=== PATIENT | female | born 1945 | race Caucasian/White ===

== ENCOUNTER 2023-02-20 00:07 | Inpatient (IN) | payer MEDICARE ==
[2023-02-20] MEDS ORDERED: SODIUM CHLORIDE 0.9% 1,000 ML IV STA (00:10)
--- NOTE | 2023-02-20 00:11 | ED ---
Neuro HPI - General Stated Complaint: Neuro Symptoms Time Seen by Provider: 02/20/23 00:10 Source: RN notes reviewed, old records reviewed Mode of arrival: EMS Limitations: no limitations - History of Present Illness Is the patient presenting with stroke symptoms?: No -: days(s) Initial Comments: This is a 69-year-old female DF for evaluation today. Patient presents the emergency department today for evaluation regards to severe weakness. Patient is somnolent and sleeping throughout exam. Patient is not having complaints but is awake and alert and arousable, patient sent to ER if she was found to have maybe some slurred speech. Last seen normal by living staff around noon today and family thought she was acting not really appropriate oh 9 PM Location: speech, dysarthria History of same: No Place: home Severity: moderate Improves With: none Worsens With: none Associated Symptoms: confusion, weakness Treatments Prior to Arrival: none - Related Data Home Medications: Home Medications Medication Instructions Recorded Confirmed Levothyroxine Sodium [Synthroid] 75 mcg PO DAILY 02/20/23 02/20/23 Previous Rx's Medication Instructions Recorded Aspirin 81 mg PO DAILY #30 tab 02/22/23 Atorvastatin [Lipitor] 80 mg PO HS #30 tab 02/22/23 Allergies/Adverse Reactions: Allergies Allergy/AdvReac Type Severity Reaction Status Date / Time Unable to Assess Allergy Verified 02/20/23 00:26 Review of Systems ROS Statement: Those systems with pertinent positive or pertinent negative responses have been documented in the HPI. ROS Other: All systems not noted in ROS Statement are negative. General Exam General appearance: alert, in no apparent distress Head exam: Present: atraumatic, normocephalic, normal inspection Eye exam: Present: normal appearance, PERRL, EOMI. Absent: scleral icterus, conjunctival injection, periorbital swelling ENT exam: Present: normal exam, mucous membranes moist Neck exam: Present: normal inspection. Absent: tenderness, meningismus, lymphadenopathy Respiratory exam: Present: normal lung sounds bilaterally. Absent: respiratory distress, wheezes, rales, rhonchi, stridor Cardiovascular Exam: Present: regular rate, normal rhythm, normal heart sounds. Absent: systolic murmur, diastolic murmur, rubs, gallop, clicks GI/Abdominal exam: Present: soft, normal bowel sounds. Absent: distended, tenderness, guarding, rebound, rigid Extremities exam: Present: normal inspection, full ROM, normal capillary refill. Absent: tenderness, pedal edema, joint swelling, calf tenderness Back exam: Present: normal inspection Neurological exam: Present: alert, oriented X3, CN II-XII intact Psychiatric exam: Present: normal affect, normal mood Skin exam: Present: warm, dry, intact, normal color. Absent: rash Stroke MDM - Lab Data Result diagrams: 02/22/23 08:22 02/22/23 11:07 Lab Results 02/20/23 02/20/23 02/20/23 Range/Units 00:25 00:27 00:27 WBC 7.8 (3.8-10.6) k/uL RBC 4.23 (3.80-5.40) m/uL Hgb 14.2 (11.4-16.0) gm/dL Hct 42.5 (34.0-46.0) % MCV 100.5 H (80.0-100.0) fL MCH 33.5 (25.0-35.0) pg MCHC 33.3 (31.0-37.0) g/dL RDW 13.4 (11.5-15.5) % Plt Count 179 (150-450) k/uL MPV 7.8 Neutrophils % 70 % Lymphocytes % 26 % Monocytes % 3 % Eosinophils % 0 % Basophils % 0 % Neutrophils # 5.5 (1.3-7.7) k/uL Lymphocytes # 2.0 (1.0-4.8) k/uL Monocytes # 0.2 (0-1.0) k/uL Eosinophils # 0.0 (0-0.7) k/uL Basophils # 0.0 (0-0.2) k/uL Macrocytosis PT 10.2 (10.0-12.5) sec INR 0.9 (<1.2) APTT 21.8 L (22.0-30.0) sec Sodium (137-145) mmol/L Potassium (3.5-5.1) mmol/L Chloride (98-107) mmol/L Carbon Dioxide (22-30) mmol/L Anion Gap mmol/L BUN (7-17) mg/dL Creatinine (0.52-1.04) mg/dL Est GFR (CKD-EPI)AfAm (>60 ml/min/1.73 sqM) Est GFR (CKD-EPI)NonAf (>60 ml/min/1.73 sqM) Glucose (74-99) mg/dL POC Glucose (mg/dL) 136 H (70-110) mg/dL POC Glu [employer] Dealer Jitendra Deal Calcium (8.4-10.2) mg/dL Phosphorus (2.5-4.5) mg/dL Magnesium (1.6-2.3) mg/dL Total Bilirubin (0.2-1.3) mg/dL AST (14-36) U/L ALT (4-34) U/L Alkaline Phosphatase (38-126) U/L Ammonia (<30) umol/L Creatine Kinase (30-135) U/L Troponin I (0.000-0.034) ng/mL Total Protein (6.3-8.2) g/dL Albumin (3.5-5.0) g/dL Lipase (23-300) U/L Vitamin B12 (200.0-944.0) pg/mL Folate (4.40-31.00) ng/mL TSH (0.465-4.680) mIU/L Urine Color Urine Appearance (Clear) Urine pH (5.0-8.0) Ur Specific [place] (1.001-1.035) Urine Protein (Negative) Urine Glucose (UA) (Negative) Urine Ketones (Negative) Urine Blood (Negative) Urine Nitrite (Negative) Urine Bilirubin (Negative) Urine Urobilinogen (<2.0) mg/dL Ur Leukocyte Esterase (Negative) Urine RBC (0-5) /hpf Urine WBC (0-5) /hpf Ur Squamous Epith Cells (0-4) /hpf Urine Bacteria (None) /hpf Hyaline Casts (0-2) /lpf Urine Mucus (None) /hpf Serum Alcohol mg/dL 02/20/23 02/20/23 02/20/23 Range/Units 00:27 00:27 00:27 WBC (3.8-10.6) k/uL RBC (3.80-5.40) m/uL Hgb (11.4-16.0) gm/dL Hct (34.0-46.0) % MCV (80.0-100.0) fL MCH (25.0-35.0) pg MCHC (31.0-37.0) g/dL RDW (11.5-15.5) % Plt Count (150-450) k/uL MPV Neutrophils % % Lymphocytes % % Monocytes % % Eosinophils % % Basophils % % Neutrophils # (1.3-7.7) k/uL Lymphocytes # (1.0-4.8) k/uL Monocytes # (0-1.0) k/uL Eosinophils # (0-0.7) k/uL Basophils # (0-0.2) k/uL Macrocytosis PT (10.0-12.5) sec INR (<1.2) APTT (22.0-30.0) sec Sodium 139 (137-145) mmol/L Potassium 3.9 (3.5-5.1) mmol/L Chloride 105 (98-107) mmol/L Carbon Dioxide 24 (22-30) mmol/L Anion Gap 10 mmol/L BUN 16 (7-17) mg/dL Creatinine 0.68 (0.52-1.04) mg/dL Est GFR (CKD-EPI)AfAm >90 (>60 ml/min/1.73 sqM) Est GFR (CKD-EPI)NonAf 84 (>60 ml/min/1.73 sqM) Glucose 140 H (74-99) mg/dL POC Glucose (mg/dL) (70-110) mg/dL POC Glu [employer] Dealer ID Calcium 9.8 (8.4-10.2) mg/dL Phosphorus (2.5-4.5) mg/dL Magnesium (1.6-2.3) mg/dL Total Bilirubin 0.8 (0.2-1.3) mg/dL AST 26 (14-36) U/L ALT 17 (4-34) U/L Alkaline Phosphatase 80 (38-126) U/L Ammonia <9 (<30) umol/L Creatine Kinase 128 (30-135) U/L Troponin I (0.000-0.034) ng/mL Total Protein 7.3 (6.3-8.2) g/dL Albumin 4.4 (3.5-5.0) g/dL Lipase (23-300) U/L Vitamin B12 (200.0-944.0) pg/mL Folate (4.40-31.00) ng/mL TSH (0.465-4.680) mIU/L Urine Color Light Yellow Urine Appearance Clear (Clear) Urine pH 6.0 (5.0-8.0) Ur Specific [place] 1.034 (1.001-1.035) Urine Protein Negative (Negative) Urine Glucose (UA) Negative (Negative) Urine Ketones Negative (Negative) Urine Blood Negative (Negative) Urine Nitrite Negative (Negative) Urine Bilirubin Negative (Negative) Urine Urobilinogen <2.0 (<2.0) mg/dL Ur Leukocyte Esterase Large H (Negative) Urine RBC 3 (0-5) /hpf Urine WBC 17 H (0-5) /hpf Ur Squamous Epith Cells 2 (0-4) /hpf Urine Bacteria Rare H (None) /hpf Hyaline Casts 3 H (0-2) /lpf Urine Mucus Rare H (None) /hpf Serum Alcohol <10 mg/dL 02/20/23 02/20/23 02/20/23 Range/Units 00:30 11:51 11:51 WBC (3.8-10.6) k/uL RBC (3.80-5.40) m/uL Hgb (11.4-16.0) gm/dL Hct (34.0-46.0) % MCV (80.0-100.0) fL MCH (25.0-35.0) pg MCHC (31.0-37.0) g/dL RDW (11.5-15.5) % Plt Count (150-450) k/uL MPV Neutrophils % % Lymphocytes % % Monocytes % % Eosinophils % % Basophils % % Neutrophils # (1.3-7.7) k/uL Lymphocytes # (1.0-4.8) k/uL Monocytes # (0-1.0) k/uL Eosinophils # (0-0.7) k/uL Basophils # (0-0.2) k/uL Macrocytosis PT (10.0-12.5) sec INR (<1.2) APTT (22.0-30.0) sec Sodium (137-145) mmol/L Potassium (3.5-5.1) mmol/L Chloride (98-107) mmol/L Carbon Dioxide (22-30) mmol/L Anion Gap mmol/L BUN (7-17) mg/dL Creatinine (0.52-1.04) mg/dL Est GFR (CKD-EPI)AfAm (>60 ml/min/1.73 sqM) Est GFR (CKD-EPI)NonAf (>60 ml/min/1.73 sqM) Glucose (74-99) mg/dL POC Glucose (mg/dL) (70-110) mg/dL POC Glu [employer] Dealer ID Calcium (8.4-10.2) mg/dL Phosphorus (2.5-4.5) mg/dL Magnesium (1.6-2.3) mg/dL Total Bilirubin (0.2-1.3) mg/dL AST (14-36) U/L ALT (4-34) U/L Alkaline Phosphatase (38-126) U/L Ammonia 14 (<30) umol/L Creatine Kinase (30-135) U/L Troponin I <0.012 (0.000-0.034) ng/mL Total Protein (6.3-8.2) g/dL Albumin (3.5-5.0) g/dL Lipase (23-300) U/L Vitamin B12 409.0 (200.0-944.0) pg/mL Folate (4.40-31.00) ng/mL TSH 1.160 (0.465-4.680) mIU/L Urine Color Urine Appearance (Clear) Urine pH (5.0-8.0) Ur Specific [place] (1.001-1.035) Urine Protein (Negative) Urine Glucose (UA) (Negative) Urine Ketones (Negative) Urine Blood (Negative) Urine Nitrite (Negative) Urine Bilirubin (Negative) Urine Urobilinogen (<2.0) mg/dL Ur Leukocyte Esterase (Negative) Urine RBC (0-5) /hpf Urine WBC (0-5) /hpf Ur Squamous Epith Cells (0-4) /hpf Urine Bacteria (None) /hpf Hyaline Casts (0-2) /lpf Urine Mucus (None) /hpf Serum Alcohol mg/dL 02/20/23 02/21/23 02/21/23 Range/Units 11:51 07:10 07:10 WBC 7.9 (3.8-10.6) k/uL RBC 3.70 L (3.80-5.40) m/uL Hgb 12.3 (11.4-16.0) gm/dL Hct 37.3 (34.0-46.0) % MCV 100.8 H (80.0-100.0) fL MCH 33.3 (25.0-35.0) pg MCHC 33.1 (31.0-37.0) g/dL RDW 13.4 (11.5-15.5) % Plt Count 188 (150-450) k/uL MPV 7.6 Neutrophils % 72 % Lymphocytes % 22 % Monocytes % 4 % Eosinophils % 1 % Basophils % 0 % Neutrophils # 5.8 (1.3-7.7) k/uL Lymphocytes # 1.7 (1.0-4.8) k/uL Monocytes # 0.3 (0-1.0) k/uL Eosinophils # 0.1 (0-0.7) k/uL Basophils # 0.0 (0-0.2) k/uL Macrocytosis Slight PT (10.0-12.5) sec INR (<1.2) APTT (22.0-30.0) sec Sodium 142 (137-145) mmol/L Potassium 3.4 L (3.5-5.1) mmol/L Chloride 111 H (98-107) mmol/L Carbon Dioxide 26 (22-30) mmol/L Anion Gap 5 mmol/L BUN 8 (7-17) mg/dL Creatinine 0.54 (0.52-1.04) mg/dL Est GFR (CKD-EPI)AfAm >90 (>60 ml/min/1.73 sqM) Est GFR (CKD-EPI)NonAf >90 (>60 ml/min/1.73 sqM) Glucose 103 H (74-99) mg/dL POC Glucose (mg/dL) (70-110) mg/dL POC Glu [employer] Dealer ID Calcium 8.7 (8.4-10.2) mg/dL Phosphorus 3.3 (2.5-4.5) mg/dL Magnesium 1.8 (1.6-2.3) mg/dL Total Bilirubin 0.8 (0.2-1.3) mg/dL AST 30 (14-36) U/L ALT 15 (4-34) U/L Alkaline Phosphatase 73 (38-126) U/L Ammonia (<30) umol/L Creatine Kinase (30-135) U/L Troponin I (0.000-0.034) ng/mL Total Protein 5.2 L (6.3-8.2) g/dL Albumin 2.8 L (3.5-5.0) g/dL Lipase 44 (23-300) U/L Vitamin B12 (200.0-944.0) pg/mL Folate 9.20 (4.40-31.00) ng/mL TSH (0.465-4.680) mIU/L Urine Color Urine Appearance (Clear) Urine pH (5.0-8.0) Ur Specific [place] (1.001-1.035) Urine Protein (Negative) Urine Glucose (UA) (Negative) Urine Ketones (Negative) Urine Blood (Negative) Urine Nitrite (Negative) Urine Bilirubin (Negative) Urine Urobilinogen (<2.0) mg/dL Ur Leukocyte Esterase (Negative) Urine RBC (0-5) /hpf Urine WBC (0-5) /hpf Ur Squamous Epith Cells (0-4) /hpf Urine Bacteria (None) /hpf Hyaline Casts (0-2) /lpf Urine Mucus (None) /hpf Serum Alcohol mg/dL - NIH Stroke Scale 1a. Level of Consciousness: (0) alert 1b. LOC Questions: (0) answers correctly 1c. LOC Commands: (0) performs tasks correctly 2. Best Gaze: (0) normal 3. Visual: (0) no visual loss 4. Facial Palsy: (0) normal symmetrical movement 5a. Motor Arm Left: (0) no drift 5b. Motor Arm Right: (0) no drift 6a. Motor Leg Left: (0) no drift 6b. Motor Leg Right: (0) no drift 7. Limb Ataxia: (0) absent 8. Sensory: (0) normal 9. Best Language: (0) no aphasia 10. Dysarthria: (0) normal 11. Extinction/Inattention: (0) no abnormality - Thrombolytic Inclusion/Exclusion Thrombolytic Exclusion Criteria: Symptom Onset > 4.5 Hours Thrombolytic Inclusion Criteria: NIH Stroke Scale Deficit - Medical Decision Making 69 female to the ER for evaluation of decreased level of responsiveness being somnolent family was concerned for slurred speech with no focal neurological findings here in the ER CT scan is negative and patient be admitted for observation neurology evaluation - Radiology Data Radiology results: report reviewed (CT brain CT had neck negative for acute disease), image reviewed - EKG Data -: EKG Interpreted by Me (EKG is sinus 89 NJ 139 QRS 78 QTc 409) Course Vital Signs 02/20/23 02/20/23 02/20/23 00:15 00:18 00:30 Temperature 97.9 F Pulse Rate 89 97 90 Respiratory 18 18 18 Rate Blood Pressure 88/66 99/87 99/72 O2 Sat by Pulse 98 99 100 Oximetry 02/20/23 02/20/23 02/20/23 00:45 01:00 01:15 Temperature Pulse Rate 88 88 75 Respiratory 18 18 18 Rate Blood Pressure 143/71 138/70 116/68 O2 Sat by Pulse 100 100 100 Oximetry 02/20/23 02/20/23 02/20/23 01:30 01:45 02:00 Temperature Pulse Rate 78 84 75 Respiratory 18 18 18 Rate Blood Pressure 122/74 118/72 123/68 O2 Sat by Pulse 100 100 100 Oximetry 02/20/23 02/20/23 02/20/23 02:30 03:00 06:28 Temperature Pulse Rate 80 85 94 Respiratory 18 18 16 Rate Blood Pressure 138/86 126/86 140/77 O2 Sat by Pulse 100 100 95 Oximetry 02/20/23 02/20/23 02/20/23 07:02 11:55 17:15 Temperature 98.2 F Pulse Rate 80 79 68 Respiratory 18 18 18 Rate Blood Pressure 133/75 122/78 155/98 O2 Sat by Pulse 98 98 98 Oximetry 02/20/23 20:30 Temperature Pulse Rate 92 Respiratory 18 Rate Blood Pressure 162/89 O2 Sat by Pulse 100 Oximetry - Reevaluation(s) Reevaluation #1: 02/20/23 02:41 medical record is reviewed 02/20/23 02:42 Code stroke based on patient presentation family thinking that she did have slurred speech prior to arrival Reevaluation #2: 02/20/23 02:42 Patient has no improvement in symptoms here in the ER, no response to Narcan Reevaluation #3: 02/20/23 02:42 Family at bedside informed results and questions answered Patient states that patient when she does do significant amount of work which she did today does become significantly somnolent Reevaluation #4: 02/20/23 02:42 Was pt. sent in by a medical professional or institution (Dr., PA, CADDY/CADDIE SUPERVISOR, urgent care, hospital, or [place] [facility] facility...) When possible be specific @ -no Did you speak to anyone other than the patient for history (EMS, parent, family, police, friend...)? What history was obtained from this source @ -no Did you review nursing and triage notes (agree or disagree)? Why? @ -agree Are old charts reviewed (outside hosp., previous admission, EMS record, old EKG, old radiological studies, urgent care reports/EKG's, [place] [facility] records)? Report findings @ -yes Differential Diagnosis (chest pain, altered mental status, abdominal pain women, abdominal pain men, vaginal bleeding, weakness, fever, dyspnea, syncope, headache, dizziness, GI bleed, back pain, seizure, CVA, palpatations, mental health, musculoskeletal)? @ -prior EKG interpreted by me (3pts min.). @ -yes X-rays interpreted by me (1pt min.). @ -yes for acute disease CT interpreted by me (1pt min.). @ -yes negative for acute disease U/S interpreted by me (1pt. min.). @ -no What testing was considered but not performed or refused? (CT, X-rays, U/S, labs)? Why? @ -none What meds were considered but not given or refused? Why? @ -none Did you discuss the management of the patient with other professionals (professionals i.e. RAGHAVENDRA Petty, CADDY/CADDIE SUPERVISOR, lab, RT, psych nurse, social media marketing specialist, acute care certified nursing assistant, teacher, special forces officer, dependency case manager)? Give summary @ -no Was smoking cessation discussed for >3mins.? @ -no Was critical care preformed (if so, how long)? @ -yes31 Were there social determinants of health that impacted care today? How? (Homelessness, low income, unemployed, alcoholism, drug addiction, trans portation, low edu. Level, literacy, decrease access to med. care, group home, rehab)? @ -none Was there de-escalation of care discussed even if they declined (Discuss DNR or withdrawal of care, Hospice)? DNR status @ -no What co-morbidities impacted this encounter? (DM, HTN, Smoking, COPD, CAD, Cancer, CVA, ARF, Chemo, Hep., AIDS, mental health diagnosis, sleep apnea, morbid obesity)? @ -none Was patient admitted / discharged? Hospital course, mention meds given and route, prescriptions, significant lab abnormalities, going to OR and other pertinent info. @ - 77 female to the ER for evaluation of decreased level of responsiveness being somnolent family was concerned for slurred speech with no focal neurological findings here in the ER CT scan is negative and patient be admitted for observation neurology evaluation Admitted Undiagnosed new problem with uncertain prognosis? @ -no Drug Therapy requiring intensive monitoring for toxicity (Heparin, Nitro, Insulin, Cardizem)? @ -no Were any procedures done? @ -no Diagnosis/symptom? @ -CVA versus TIA Acute, or Chronic, or Acute on Chronic? @ -Acute Uncomplicated (without systemic symptoms) or Complicated (systemic symptoms)? @ -Complicated Side effects of treatment? @ -no Exacerbation, Progression, or Severe Exacerbation? @ -exacerbation Poses a threat to life or bodily function? How? (Chest pain, USA, IA, pneumonia, PE, COPD, DKA, ARF, appy, cholecystitis, CVA, Diverticulitis, Homicidal, Suicidal, threat to staff... and all critical care pts) @ -yes with acute neurological symptoms Reevaluation #5: 02/20/23 02:42 Differential CVA Ischemic stroke, hemorrhagic stroke, brain tumor, atypical migraine, Wernicke's encephalopathy, seizure, multiple sclerosis, meningitis, encephalitis, hypoglycemia, Guillain-Singh, electrolytes disturbance, myasthenia gravis.... This is not meant to be an all-inclusive list - Consultations Consultation #1: spoke sound who agrees to admit the patient is Critical Care Time Critical Care Time: Yes Total Critical Care Time: 31 Disposition Clinical Impression: Transient cerebral ischemia, Altered mental status, Weakness Disposition: ADMITTED IP TO THIS HOSP Condition: Fair Is patient prescribed a controlled substance at d/c from ED?: No Time of Disposition: 02:40
[2023-02-20 00:27] LABS: Glucose,Whole Blood 136 mg/dL (70-110)
[2023-02-20 00:36] LABS: Basophils % (A) 0 %; Eosinophils % (A) 0 %; HCT 42.5 % (34.0-46.0); HGB 14.2 gm/dL (11.4-16.0); Lymphocytes % (A) 26 %; MCH 33.5 pg (25.0-35.0); MCHC 33.3 g/dL (31.0-37.0); MCV 100.5 fL (80.0-100.0); Mean Platelet Volume 7.8; Monocytes # (A) 0.2 k/uL (0-1.0); Monocytes % (A) 3 %; Neutrophils # (A) 5.5 k/uL (1.3-7.7); Neutrophils % (A) 70 %; Platelet Count 179 k/uL (150-450); RBC 4.23 m/uL (3.80-5.40); RDW 13.4 % (11.5-15.5); WBC 7.8 k/uL (3.8-10.6)
[2023-02-20 00:52] LABS: ALT 17 U/L (4-34); African American GFR (CKD) >90 (>60 ml/min/1.73 sqM); Albumin 4.4 g/dL (3.5-5.0); Alcohol <10 mg/dL; Anion Gap 10 mmol/L; Blood Urea Nitrogen 16 mg/dL (7-17); Calcium 9.8 mg/dL (8.4-10.2); Carbon Dioxide 24 mmol/L (22-30); Chloride 105 mmol/L (98-107); Creatine Kinase 128 U/L (30-135); Glucose 140 mg/dL (74-99); INR 0.9 (<1.2); Non-African American GFR(CKD) 84 (>60 ml/min/1.73 sqM); Prothrombin Time 10.2 sec (10.0-12.5); Sodium 139 mmol/L (137-145); Total Bilirubin 0.8 mg/dL (0.2-1.3); Total Protein 7.3 g/dL (6.3-8.2)
[2023-02-20 00:55] LABS: Partial Thromboplastin Time 21.8 sec (22.0-30.0)
--- NOTE | 2023-02-20 01:00 | CT ---
EXAM: CT Head Without Intravenous Contrast CLINICAL HISTORY: ITS.REASON CT Reason: Neuro deficit, acute, stroke suspected TECHNIQUE: Axial computed tomography images of the head/brain without intravenous contrast. CTDI is 48.8 mGy and DLP is 1188.9 mGy-cm. This CT exam was performed using one or more of the following dose reduction techniques: automated exposure control, adjustment of the mA and/or kV according to patient size, and/or use of iterative reconstruction technique. COMPARISON: No relevant prior studies available. FINDINGS: Brain: Unremarkable. No hemorrhage. No significant white matter disease. No edema. Ventricles: No acute findings. No ventriculomegaly. Bones/joints: Unremarkable. No acute fracture. Soft tissues: Trichilemmal cysts in the scalp. Sinuses: Unremarkable as visualized. No acute sinusitis. Mastoid air cells: Unremarkable as visualized. No mastoid effusion. IMPRESSION: No acute findings in the head/brain.
--- NOTE | 2023-02-20 01:02 | XR ---
EXAM: XR Chest, 1 View CLINICAL HISTORY: ITS.REASON XR Reason: altered mental status TECHNIQUE: Frontal view of the chest. COMPARISON: No relevant prior studies available. FINDINGS: Lungs: No consolidation. Pleural space: No acute findings. No pneumothorax. Heart: No cardiomegaly. Bones/joints: Postsurgical changes in the lower cervical spine and T1. IMPRESSION: No acute findings in the chest.
--- NOTE | 2023-02-20 01:09 | CT ---
EXAM: CT Angiography Head With Intravenous Contrast CLINICAL HISTORY: ITS.REASON CT Reason: Neuro deficit, acute, stroke suspected TECHNIQUE: Axial computed tomographic angiography images of the head with intravenous contrast. CTDI is 13.2 mGy and DLP is 148.75 mGy-cm. This CT exam was performed using one or more of the following dose reduction techniques: automated exposure control, adjustment of the mA and/or kV according to patient size, and/or use of iterative reconstruction technique. MIP reconstructed images were created and reviewed. COMPARISON: No relevant prior studies available. FINDINGS: Artifacts: Motion artifact limits study. Right internal carotid artery: No acute findings. Intracranial segment is patent with no significant stenosis. No aneurysm. Right anterior cerebral artery: No occlusion or significant stenosis. No aneurysm. Right middle cerebral artery: No occlusion or significant stenosis. No aneurysm. Right posterior cerebral artery: No occlusion or significant stenosis. No aneurysm. Right vertebral artery: Unremarkable as visualized. Left internal carotid artery: No acute findings. Intracranial segment is patent with no significant stenosis. No aneurysm. Left anterior cerebral artery: No occlusion or significant stenosis. No aneurysm. Left middle cerebral artery: No occlusion or significant stenosis. No aneurysm. Left posterior cerebral artery: No occlusion or significant stenosis. No aneurysm. Left vertebral artery: Unremarkable as visualized. Basilar artery: No occlusion or significant stenosis. No aneurysm. IMPRESSION: No large vessel occlusion or aneurysm. EXAM: CT Angiography Neck With Intravenous Contrast CLINICAL HISTORY: ITS.REASON CT Reason: Neuro deficit, acute, stroke suspected TECHNIQUE: Routine carotid CT angiography protocol was performed with intravenous contrast. NASCET criteria using the distal ICAs for comparison were used for evaluation of stenoses. CTDI is 13.2 mGy and DLP is 148.75 mGy-cm. This CT exam was performed using one or more of the following dose reduction techniques: automated exposure control, adjustment of the mA and/or kV according to patient size, and/or use of iterative reconstruction technique. MIP reconstructed images were created and reviewed. COMPARISON: None. FINDINGS: Limitations: Exam limited by motion artifact. VASCULATURE: Right common carotid artery: No significant stenosis. No dissection or occlusion. Right internal carotid artery: Calcified plaque carotid bifurcations. Right external carotid artery: No occlusion. Right vertebral artery: No significant stenosis. No dissection or occlusion. Left common carotid artery: No significant stenosis. No dissection or occlusion. Left internal carotid artery: See above. Left external carotid artery: No occlusion. Left vertebral artery: No significant stenosis. No dissection or occlusion. NECK: Bones/joints: No acute findings. Soft tissues: Unremarkable. Lung apices: No acute disease. CAROTID STENOSIS REFERENCE USING NASCET CRITERIA: % ICA stenosis = (1 - narrowest ICA diameter/diameter of distal cervical ICA) x 100. Mild - <50% stenosis. Moderate - 50-69% stenosis. Severe - 70-94% stenosis. Near occlusion - 95-99% stenosis. Occluded - 100% stenosis. IMPRESSION: No acute findings in the arteries of the neck.
[2023-02-20] MEDS ORDERED: NALOXONE 0.4 MG/ML 1 ML VIAL IVP STA (01:26)
[2023-02-20 01:41] LABS: AST 26 U/L (14-36); Alkaline Phosphatase 80 U/L (38-126); Potassium 3.9 mmol/L (3.5-5.1)
[2023-02-20] MEDS ORDERED: MORPHINE SULFATE 4 MG/ML SYRINGE IV PRN (02:39)
[2023-02-20] MEDS ORDERED: ONDANSETRON 4 MG/2 ML VIAL IVP PRN (02:39)
[2023-02-20] MEDS ORDERED: NALOXONE 0.4 MG/ML 1 ML VIAL IV PRN (02:39)
--- NOTE | 2023-02-20 03:49 | P.HPIM ---
History of Present Illness H&P Date: 02/20/23 Patient is a 77-year-old female with a known PMH who was brought in the emergency room for slurred speech, confusion, and lethargy. This she was obtained from the ED provider in the documentation of the patient was confused at the time of interview. Patient was last seen at noon on 02/19/23 and when family checked on her at 2245, the patient was noted to have a facial droop, was somewhat lethargic, and had slurred speech. There are differing accounts of the patient's baseline and one family member mentioned to the ED staff that this is similar to the patient's baseline. Code stroke was activated upon arrival to the emergency room. CT angiogram head and neck was unremarkable. CT brain was also unremarkable. Patient was deemed to not be a candidate for TPA. No family members available at the bedside. Attempted to contact sibling via phone number listed in chart with no response. Chest x-ray was unremarkable. EKG revealed sinus rhythm with APCs at 89 bpm with no obvious ST/T-wave changes are as reviewed by me. Laboratory evaluation revealed MCV 100.5, troponin less than 0.012, and serum alcohol level less than 10 with glucose 140 ED documentation reviewed and case discussed with ED provider. Review of systems: Limited due to mental status Physical examination: Vital signs reviewed General: non toxic, no distress, appears at stated age, overweight Derm: no unusual rashes/lesions, warm Head: atraumatic, normocephalic, symmetric Eyes: EOMI, no lid lag, anicteric sclera, pupils equal round reactive to light ENT: Nose and ears atraumatic Neck: No cervical lymphadenopathy, trachea midline, supple Mouth: no lip lesion, mucus membranes moist Cardiovascular: S1S2 reg, no murmur, positive dorsalis pedis pulse bilateral, no edema Lungs: CTA bilateral, no rhonchi, no rales, no accessory muscle use Abdominal: soft, nontender to palpation, no guarding Ext: muscle strength 4 out of 5 in all 4 extremities grossly, no gross muscle atrophy, no contractures, Neuro: CN II-XI grossly intact, no gross focal neuro deficits, somewhat slurred speech, no facial droop noted Psych: Lethargic, oriented to person and place, not answering most questions appropriately Assessment: Slurred speech and altered mental status, rule out CVA Unknown past medical history Imaging: CT angiogram head and neck was unremarkable. CT brain was also unremarkable. Chest x-ray was unremarkable. EKG revealed sinus rhythm with APCs at 89 bpm with no obvious ST/T-wave changes are as reviewed by me. Data Review: Laboratory evaluation revealed MCV 100.5, troponin less than 0.012, and serum alcohol level less than 10 with glucose 140 Plan: Neuro checks Fall precautions Neurology consulted Continue with aspirin and statin Cardiac monitoring Echocardiogram DVT prophylaxis: Lovenox Subq The patient is admitted with an anticipated less than 2 midnight stay for evaluation of r/o CVA CODE STATUS: Full Code Discussed with: Patient Anticipated discharge place: Home Past Medical History Additional Past Medical History / Comment(s): UTO Additional Past Surgical History / Comment(s): UTO Medications and Allergies Allergies Allergy/AdvReac Type Severity Reaction Status Date / Time Unable to Assess Allergy Verified 02/20/23 00:26 Physical Exam Vitals: Vital Signs Temp Pulse Resp BP Pulse Ox 02/20/23 03:00 85 18 126/86 100 02/20/23 02:30 80 18 138/86 100 02/20/23 02:00 75 18 123/68 100 02/20/23 01:45 84 18 118/72 100 02/20/23 01:30 78 18 122/74 100 02/20/23 01:15 75 18 116/68 100 02/20/23 01:00 88 18 138/70 100 02/20/23 00:45 88 18 143/71 100 02/20/23 00:30 90 18 99/72 100 02/20/23 00:18 97.9 F 97 18 99/87 99 02/20/23 00:15 89 18 88/66 98 Intake and Output 02/19/23 02/19/23 02/20/23 14:59 22:59 06:59 Other: Weight 72.439 kg Results CBC & Chem 7: 02/20/23 00:27 02/20/23 00:27 Labs: Abnormal Lab Results - Last 24 Hours (Table) 02/20/23 02/20/23 02/20/23 Range/Units 00:25 00:27 00:27 MCV 100.5 H (80.0-100.0) fL APTT 21.8 L (22.0-30.0) sec Glucose (74-99) mg/dL POC Glucose (mg/dL) 136 H (70-110) mg/dL 02/20/23 Range/Units 00:27 MCV (80.0-100.0) fL APTT (22.0-30.0) sec Glucose 140 H (74-99) mg/dL POC Glucose (mg/dL) (70-110) mg/dL
[2023-02-20] MEDS: SODIUM CHLORIDE 0.9% 1,000 ML IV SCH ×4 (04:26→22:40)
[2023-02-20] MEDS: ATORVASTATIN 80 MG TAB PO ONE ×2 (04:39→05:06)
[2023-02-20] MEDS: ASPIRIN 325 MG TAB PO STA ×2 (04:39→05:06)
--- NOTE | 2023-02-20 09:36 | CA ---
Transthoracic Echo Report Name: Iris Lopez Age: 77 Gender: F : 1945 Exam Date: 02/20/2023 08:03 Exam Location: [place] [facility] Ht (in): 62 Wt (lb): 159 Ordering Physician: Susan Giron MD Attending/Referring Phys: Non Destructive Testing Scientist Tonia Jackson RDCS Procedure CPT: Indications: CVA? Cardiac Hx: Technical Quality: Good Contrast 1: Total Dose (mL): Contrast 2: Total Dose (mL): MEASUREMENTS (Male / Female) Normal Values 2D ECHO LV Diastolic Diameter PLAX 4.0 cm 4.2 - 5.9 / 3.9 - 5.3 cm LV Systolic Diameter PLAX 2.6 cm IVS Diastolic Thickness 1.1 cm 0.6 - 1.0 / 0.6 - 0.9 cm LVPW Diastolic Thickness 1.1 cm 0.6 - 1.0 / 0.6 - 0.9 cm LV Relative Wall Thickness 0.5 RV Internal Dim ED PLAX 2.6 cm LA Systolic Diameter LX 3.8 cm 3.0 - 4.0 / 2.7 - 3.8 cm LV Diastolic Volume MOD 4C 61.0 cm??? LV Systolic Volume MOD 4C 15.3 cm??? LV Ejection Fraction MOD 4C 74.9 % LV Cardiac Index MOD 4C 2537.2 cm???/min???m??? LV Diastolic Length 4C 7.5 cm LV Systolic Length 4C 5.9 cm LV Diastolic Volume MOD 2C 55.6 cm??? LV Systolic Volume MOD 2C 23.5 cm??? LV Ejection Fraction MOD 2C 57.7 % LV Cardiac Index MOD 2C 1783.1 cm???/min???m??? LV Diastolic Length 2C 7.5 cm LV Systolic Length 2C 5.8 cm LA Volume 49.9 cm??? 18 - 58 / 22 - 52 cm??? LA Volume Index 27.7 cm???/m??? 16 - 28 cm???/m??? M-MODE Aortic Root Diameter MM 3.2 cm AV Cusp Separation MM 1.6 cm DOPPLER AV Peak Velocity 131.8 cm/s AV Peak Gradient 7.0 mmHg MV Area PHT 3.0 cm??? Mitral E Point Velocity 87.7 cm/s Mitral A Point Velocity 156.0 cm/s Mitral E to A Ratio 0.6 MV Deceleration Time 253.9 ms MV E' Velocity 6.4 cm/s Mitral E to MV E' Ratio 13.7 FINDINGS Left Ventricle Left ventricular ejection fraction is estimated at 55-60 %. Left ventricular cavity size normal. Mildly increased septal wall thickness. Mildly increased posterior wall thickness. Right Ventricle Normal right ventricular size. Unable to estimate the right ventricular systolic pressure. Right Atrium Normal right atrial size. Left Atrium Normal left atrial size. Mitral Valve Mitral valve thickened. Mild mitral annular calcification. No mitral stenosis, regurgitation or prolapse. Aortic Valve Trileaflet aortic valve. Aortic valve sclerosis. Tricuspid Valve Structurally normal tricuspid valve. No tricuspid regurgitation. Pulmonic Valve Structurally normal pulmonic valve. No pulmonic regurgitation. Pericardium No pericardial effusion. Aorta Normal size aortic root and proximal ascending aorta. CONCLUSIONS Normal LV size and systolic function with mild concentric LVH. There is mitral annular calcification and aortic sclerosis without restriction. There is minimal mitral and tricuspid regurgitation. No pericardial effusion Previewed by: Dr. Radha Dyer MD (Electronically Signed) Final Date: 20 February 2023 09:35
[2023-02-20] MEDS: ASPIRIN 81 MG PO SCH ×2 (09:59)
[2023-02-20] MEDS: ENOXAPARIN 40 MG/0.4 ML SYRINGE SQ SCH (09:59)
--- NOTE | 2023-02-20 13:39 | P.CNNES ---
History of Present Illness Consult date: 02/20/23 Requesting physician: Dao Li Reason for Consult: ams History of Present Illness: This is a 77-year-old woman with altered mental status. History is obtained from medical record that. This seems the patient brought to the emergency department because of slurred speech, confusion and lethargy. Upon seeing the patient patient continued to be confused and unable to provide a history for me. Some other workup during his hospital visit consisted of: Patient is afebrile. Patient blood pressure was 88/66 resolved and most recent is 122/78. CBC with differential is MCV is 100.5 otherwise it's unremarkable Serum glucose is 104 otherwise rest of the chem strip panel is unremarkable Ammonia is less than 9, TSH is 1.160 AST and ALT is within normal limits Calcium is 9.8. Serum alcohol was less than 10. CT of the head is reported as no acute finding in the head. I personally reviewed the CT head and I agree with the report. CT angiography of the head is reported as no large vessel occlusion or aneurysm CT angiography of the neck was reported as no acute finding in the arteries of the neck. 2-D echo was reported as normal left ventricular size and systolic function with mild concentric left ventricular hypertrophy. There is mild annular calcification and aortic sclerosis without restriction. There is minimal mitral and tricuspid regurgitation. No pericardial effusion. Review of Systems Limited. Past Medical History Additional Past Medical History / Comment(s): UTO Additional Past Surgical History / Comment(s): UTO Medications and Allergies Home Medications Medication Instructions Recorded Confirmed Type Levothyroxine Sodium [Synthroid] 75 mcg PO DAILY 02/20/23 02/20/23 History Simvastatin [Zocor] 20 mg PO HS 02/20/23 02/20/23 History Allergies Allergy/AdvReac Type Severity Reaction Status Date / Time Unable to Assess Allergy Verified 02/20/23 00:26 Physical Examination - Vital Signs Vital Signs: Vital Signs Temp Pulse Resp BP Pulse Ox 02/20/23 11:55 98.2 F 79 18 122/78 98 02/20/23 07:02 80 18 133/75 98 02/20/23 06:28 94 16 140/77 95 02/20/23 03:00 85 18 126/86 100 02/20/23 02:30 80 18 138/86 100 02/20/23 02:00 75 18 123/68 100 02/20/23 01:45 84 18 118/72 100 02/20/23 01:30 78 18 122/74 100 02/20/23 01:15 75 18 116/68 100 02/20/23 01:00 88 18 138/70 100 02/20/23 00:45 88 18 143/71 100 02/20/23 00:30 90 18 99/72 100 02/20/23 00:18 97.9 F 97 18 99/87 99 02/20/23 00:15 89 18 88/66 98 Intake and Output 02/19/23 02/20/23 02/20/23 22:59 06:59 14:59 Other: Weight 72.439 kg General: Lying in bed and does not appear in acute distress. HENT: Supple neck. NEuro: Very limited. She is moderate to severely encephalopathic. She is oriented to self. She is following few simple commands (thumbs up, wiggling toes). Language is limited. Pupils are round, equal and reactive to light. No facial weakness. Motor: Very limited in assessment. She would briefly lift bilateral uppers above gravity. While lowers would wiggle toes. Plantars: Mute. Results - Laboratory Findings CBC and BMP: 02/20/23 00:27 02/20/23 00:27 Abnormal Lab Findings: Abnormal Labs 02/20/23 02/20/23 02/20/23 00:25 00:27 00:27 MCV 100.5 H APTT 21.8 L Glucose POC Glucose (mg/dL) 136 H 02/20/23 00:27 MCV APTT Glucose 140 H POC Glucose (mg/dL) Assessment and Plan Assessment: This is a 77-year-old woman who presents because of confusion, lethargy was slurred speech. She had CT of the head as well as CT angiography of the head and neck which were unremarkable. Her initial blood pressure on presentation was in the 80s systolic which improved. Encephalopathy of unknown exact etiology. Patient had hypotensive episode. Rule out underlying stroke Plan: I ordered MRI of the brain, routine EEG. I also ordered TSH vitamin B12 and ammonia level Patient is on aspirin 81 mg daily as well as Lipitor 80 mg daily at bedtime. Continue neurochecks Cardiac monitoring PT OT and also by mouth consulted His avoid any further hypotensive episodes. We'll defer the rest of the medical measure the primary team For DVT prophylaxis patient on Lovenox Thank you for the consultation Time with Patient: Greater than 30
[2023-02-20 14:47] LABS: Appearance,Urine Clear (Clear); Bacteria,Urine Rare /hpf; Bilirubin,Urine Negative (Negative); Blood,Urine Negative (Negative); Color,Urine Light Yellow; Glucose,Urine (UA) Negative (Negative); Hyaline Casts,Urine 3 /lpf (0-2); Ketones,Urine Negative (Negative); Leukocyte Esterase,Urine Large (Negative); Mucus,Urine Rare /hpf; Nitrite,Urine Negative (Negative); Protein,Urine Negative (Negative); RBC,Urine 3 /hpf (0-5); Specific Gravity,Urine 1.034 (1.001-1.035); Squamous Epithelial Cell,Urine 2 /hpf (0-4); Urobilinogen,Urine <2.0 mg/dL (<2.0); WBC,Urine 17 /hpf (0-5)
[2023-02-20] MEDS ORDERED: HALOPERIDOL LACTATE 5 MG/ML 1 ML VIAL IVP PRN (18:14)
[2023-02-20] MEDS ORDERED: HALOPERIDOL LACTATE 5 MG/ML 1 ML VIAL IVP STA (21:40)
[2023-02-20] MEDS: ATORVASTATIN 80 MG TAB PO SCH (21:44)
--- NOTE | 2023-02-20 23:44 | EEG ---
ELECTROENCEPHALOGRAM REPORT CLINICAL HISTORY: This is a 77-year-old woman with altered mental status. The video EEG is obtained to rule out seizure and epileptiform discharges. RELEVANT MEDICATIONS: The patient is not on any antiepileptic drug per the medical record. EEG TYPE: A routine 21-channel EEG with video using the 10/20 electrode placement system. DESCRIPTION: Wakefulness is only obtained. The background is very limited throughout the study because of significant myogenic artifact. From the limited background it appears the background is 9.5 to 10 hertz activity. There is no physiological stage 2 sleep architecture. There is no focal slowing from the limited study. There is significant diffuse myogenic artifact throughout the study. Interictal and ictal is none from the limited study. ACTIVATION PROCEDURE: Photic stimulation, hyperventilation is not performed. CLINICAL INTERPRETATION: The study is limited because of significant myogenic artifact, but from limitation the background is normal and there are no seizure or discharges. Clinical correlation is recommended. VANESSAODL / IJN: [id number] / THANH
[2023-02-21 07:48] LABS: Basophils % (A) 0 %; Eosinophils # (A) 0.1 k/uL (0-0.7); Eosinophils % (A) 1 %; HCT 37.3 % (34.0-46.0); HGB 12.3 gm/dL (11.4-16.0); Lymphocytes # (A) 1.7 k/uL (1.0-4.8); Lymphocytes % (A) 22 %; MCH 33.3 pg (25.0-35.0); MCHC 33.1 g/dL (31.0-37.0); MCV 100.8 fL (80.0-100.0); Macrocytosis Slight; Mean Platelet Volume 7.6; Monocytes # (A) 0.3 k/uL (0-1.0); Monocytes % (A) 4 %; Neutrophils # (A) 5.8 k/uL (1.3-7.7); Neutrophils % (A) 72 %; Platelet Count 188 k/uL (150-450); RDW 13.4 % (11.5-15.5); WBC 7.9 k/uL (3.8-10.6)
[2023-02-21 08:08] LABS: ALT 15 U/L (4-34); AST 30 U/L (14-36); African American GFR (CKD) >90 (>60 ml/min/1.73 sqM); Albumin 2.8 g/dL (3.5-5.0); Alkaline Phosphatase 73 U/L (38-126); Anion Gap 5 mmol/L; Blood Urea Nitrogen 8 mg/dL (7-17); Calcium 8.7 mg/dL (8.4-10.2); Carbon Dioxide 26 mmol/L (22-30); Chloride 111 mmol/L (98-107); Glucose 103 mg/dL (74-99); Lipase 44 U/L (23-300); Magnesium 1.8 mg/dL (1.6-2.3); Non-African American GFR(CKD) >90 (>60 ml/min/1.73 sqM); Phosphorus 3.3 mg/dL (2.5-4.5); Potassium 3.4 mmol/L (3.5-5.1); Sodium 142 mmol/L (137-145); Total Bilirubin 0.8 mg/dL (0.2-1.3); Total Protein 5.2 g/dL (6.3-8.2)
[2023-02-21] MEDS: ENOXAPARIN 40 MG/0.4 ML SYRINGE SQ SCH (08:15)
[2023-02-21] MEDS: ASPIRIN 81 MG PO SCH (12:12)
--- NOTE | 2023-02-21 12:53 | MR ---
EXAMINATION TYPE: MR brain wo/w con DATE OF EXAM: 02/21/2023 COMPARISON: CT brain 1 day earlier HISTORY: AMS, encephalopathy unknown. TECHNIQUE: Multiplanar, multisequence images of the brain and brainstem is performed without and with IV contras t, utilizing 7 mL intravenous Gadavist . FINDINGS: Exam suboptimal as there is patient motion, fast sequence imaging had to be performed. Diff usion weighted images demonstrate no evidence of a recent infarct or other diffusion abnormality. Th ere is no extra-axial fluid collection. The ventricular system and cisternal spaces are normal in si ze and appearance. The brain volume is age appropriate. Single 3 mm T2 hyperintense focus right brai n posterior frontal deep white matter axial image 17. Midline structures demonstrate normal morphology. The craniocervical junction appears within normal limits. Post contrast images demonstrate no abnormal enhancement. The dural venous sinuses appear pa tent. The visualized sinuses are clear and the globes are intact. Nasal septum remains deviated to ri ght of midline. IMPRESSION: No MRI evidence for recent infarct. Suboptimal study with minimal nonspecific white matte r change. No obvious abnormal enhancement.
--- NOTE | 2023-02-21 12:55 | P.PN ---
Subjective Progress Note Date: 02/21/23 I am following-up with patient and continues is severely drowsy. Per nurse she was agitated overnight and was given Haldol. Currently she is severely drowsy Objective - Vital Signs Vital signs: Vital Signs Temp 97.9 F 02/21/23 08:10 Pulse 93 02/21/23 08:10 Resp 20 02/21/23 08:10 BP 165/97 02/21/23 08:10 Pulse Ox 95 02/21/23 10:19 FiO2 Intake & Output 02/20/23 02/21/23 02/21/23 18:59 06:59 18:59 Other: Voiding Method External Catheter # Voids 1 - Exam General: Is severely drowsy and does not appear in acute distress. Neuro: Severely drowsy. Not cooperating for examination or verbalizing. Some other workup during his hospital visit consisted of: Patient is afebrile. Patient blood pressure was 88/66 resolved and most recent is 122/78. CBC with differential is MCV is 100.5 otherwise it's unremarkable Serum glucose is 104 otherwise rest of the chem strip panel is unremarkable Ammonia is less than 9 TSH is 1.160 AST and ALT is within normal limits Calcium is 9.8. Vitamin B12 is 409 Serum folate 9.20 Serum alcohol was less than 10. Urine analysis seems suspicious for acute UTI with large leukocyte esteratse, urine wbc 17 and bacteria is rare. CT of the head is reported as no acute finding in the head. I personally reviewed the CT head and I agree with the report. CT angiography of the head is reported as no large vessel occlusion or aneurysm CT angiography of the neck was reported as no acute finding in the arteries of the neck. 2-D echo was reported as normal left ventricular size and systolic function with mild concentric left ventricular hypertrophy. There is mild annular calcification and aortic sclerosis without restriction. There is minimal mitral and tricuspid regurgitation. No pericardial effusion. Routine EEG on 02/20/2023: Study is limited because of the significant myogenic artifac. But from limitation the background is normal and there is no seizure or discharges. - Labs CBC & Chem 7: 02/21/23 07:10 02/21/23 07:10 Labs: Abnormal Lab Results - Last 24 Hours (Table) 02/20/23 02/21/23 02/21/23 Range/Units 00:27 07:10 07:10 RBC 3.70 L (3.80-5.40) m/uL MCV 100.8 H (80.0-100.0) fL Potassium 3.4 L (3.5-5.1) mmol/L Chloride 111 H (98-107) mmol/L Glucose 103 H (74-99) mg/dL Total Protein 5.2 L (6.3-8.2) g/dL Albumin 2.8 L (3.5-5.0) g/dL Ur Leukocyte Esterase Large H (Negative) Urine WBC 17 H (0-5) /hpf Urine Bacteria Rare H (None) /hpf Hyaline Casts 3 H (0-2) /lpf Urine Mucus Rare H (None) /hpf Assessment and Plan Assessment: This is a 77-year-old woman who presents because of confusion, lethargy was slurred speech. She had CT of the head as well as CT angiography of the head and neck which were unremarkable. Her initial blood pressure on presentation was in the 80s systolic which improved. Encephalopathy of unknown exact etiology. Patient had hypotensive episode with suspicious for acute UTI. Rule out underlying stroke. EEG is limited because of myogenic artifact but from limitation no seizure or discharges. Plan: MRI of the brain is pending Patient is on aspirin 81 mg daily as well as Lipitor 80 mg daily at bedtime. Continue neurochecks Cardiac monitoring PT OT consulted Please avoid any further hypotensive episodes. We'll defer the rest of the medical measure the primary team For DVT prophylaxis patient on Lovenox The plan is discussed with primary attending and her nurse. Time with Patient: Less than 30
[2023-02-21 13:10] VITALS: RESP 18
--- NOTE | 2023-02-21 14:36 | P.PN ---
Subjective Progress Note Date: 02/21/23 Pt rec'd several doses of haldol overnight, was very sleepy on my exam today. EEG was done and negative for seizure. Discussed with neurology today, plan is to complete MRI to r/o stroke. Gen: Sleepy, arousable HEENT: normocephalic, atraumatic, good hearing acuity, moist mucous membranes Resp: good air exchange, breathing comfortably with no accessory muscle use CVS: good distal perfusion x 4, GI: soft, NTTP, ND : no SPT, no CVAT, roy catheter not present MSK: no pitting edema, no clubbing Hospital course: Patient is a 77-year-old female with a known PMH who was brought in the emergency room for slurred speech, confusion, and lethargy. Chest x-ray was unremarkable. EKG revealed sinus rhythm with APCs at 89 bpm with no obvious ST/T-wave changes are as reviewed by me. Laboratory evaluation revealed MCV 100.5, troponin less than 0.012, and serum alcohol level less than 10 with glucose 140 Assessment: Slurred speech and altered mental status Unknown past medical history Imaging: CT angiogram head and neck was unremarkable. CT brain was also unremarkable. Chest x-ray was unremarkable. EKG revealed sinus rhythm with APCs at 89 bpm with no obvious ST/T-wave changes are as reviewed by me. Data Review: Laboratory evaluation revealed MCV 100.5, troponin less than 0.012, and serum alcohol level less than 10 with glucose 140 Plan: Neuro checks Fall precautions Neurology consulted Continue with aspirin and statin Cardiac monitoring Echocardiogram EEG was negative for seizures MRI was negative for stroke CT of the neck was negative for stenosis DVT prophylaxis: Lovenox Subq The patient is admitted with an anticipated less than 2 midnight stay for evaluation of r/o CVA CODE STATUS: Full Code Discussed with: Patient Anticipated discharge place: Home Objective - Vital Signs Vital signs: Vital Signs Temp 97.6 F 02/21/23 12:15 Pulse 88 02/21/23 12:15 Resp 18 02/21/23 12:15 BP 142/86 02/21/23 12:15 Pulse Ox 99 02/21/23 12:15 FiO2 Intake & Output 02/20/23 02/21/23 02/21/23 18:59 06:59 18:59 Intake Total 60 Balance 60 Intake: Oral 60 Other: Voiding Method External Catheter # Voids 1 - Labs CBC & Chem 7: 02/21/23 07:10 02/21/23 07:10 Labs: Abnormal Lab Results - Last 24 Hours (Table) 02/20/23 02/21/23 02/21/23 Range/Units 00:27 07:10 07:10 RBC 3.70 L (3.80-5.40) m/uL MCV 100.8 H (80.0-100.0) fL Potassium 3.4 L (3.5-5.1) mmol/L Chloride 111 H (98-107) mmol/L Glucose 103 H (74-99) mg/dL Total Protein 5.2 L (6.3-8.2) g/dL Albumin 2.8 L (3.5-5.0) g/dL Ur Leukocyte Esterase Large H (Negative) Urine WBC 17 H (0-5) /hpf Urine Bacteria Rare H (None) /hpf Hyaline Casts 3 H (0-2) /lpf Urine Mucus Rare H (None) /hpf
[2023-02-21] MEDS: SODIUM CHLORIDE 0.9% 1,000 ML IV SCH ×2 (18:25→20:04)
[2023-02-21] MEDS: ATORVASTATIN 80 MG TAB PO SCH (20:04)
[2023-02-22] MEDS: SODIUM CHLORIDE 0.9% 1,000 ML IV SCH ×3 (06:24→09:13)
[2023-02-22] MEDS: ENOXAPARIN 40 MG/0.4 ML SYRINGE SQ SCH (09:10)
[2023-02-22] MEDS: ASPIRIN 81 MG PO SCH (09:10)
[2023-02-22 09:13] VITALS: BP 119/83; PULSE 99; TEMP 97.8
[2023-02-22 09:17] LABS: Basophils # (A) 0.1 k/uL (0-0.2); Basophils % (A) 1 %; Eosinophils # (A) 0.1 k/uL (0-0.7); Eosinophils % (A) 2 %; HGB 14.3 gm/dL (11.4-16.0); Hypochromasia Slight; Lymphocytes # (A) 2.7 k/uL (1.0-4.8); Lymphocytes % (A) 35 %; MCH 35.5 pg (25.0-35.0); MCV 104.5 fL (80.0-100.0); Macrocytosis Slight; Mean Platelet Volume 9.1; Monocytes # (A) 0.8 k/uL (0-1.0); Monocytes % (A) 10 %; Neutrophils % (A) 51 %; Platelet Count 157 k/uL (150-450); RBC 4.02 m/uL (3.80-5.40); WBC 7.9 k/uL (3.8-10.6)
[2023-02-22 11:44] LABS: African American GFR (CKD) >90 (>60 ml/min/1.73 sqM); Anion Gap 5 mmol/L; Blood Urea Nitrogen 11 mg/dL (7-17); Carbon Dioxide 28 mmol/L (22-30); Chloride 109 mmol/L (98-107); Glucose 106 mg/dL (74-99); Non-African American GFR(CKD) 87 (>60 ml/min/1.73 sqM); Potassium 3.4 mmol/L (3.5-5.1); Sodium 142 mmol/L (137-145)
--- NOTE | 2023-02-22 12:32 | P.PN ---
Subjective Progress Note Date: 02/22/23 AMS TIA Unknown past medical history Hospital course: Patient is a 77-year-old female with a known PMH who was brought in the emergency room for slurred speech, confusion, and lethargy. Chest x-ray was unremarkable. EKG revealed sinus rhythm with APCs at 89 bpm with no obvious ST/T-wave changes are as reviewed by me. Laboratory evaluation revealed MCV 100.5, troponin less than 0.012, and serum alcohol level less than 10 with glucose 140. Pt was admitted for AMS and CVA rule out. Neurology was consulted, recommended EEG/MRI. EEG was negative for seizures, MRI negative for stroke. Pt was noted to have improved mentation after 48 hours of hospitalization, though did have agitation episodes throughout hospitalization requiring haldol pushes. She recovered back to baseline mental status by day of discharge. She was evaluated by PT and felt to be back to baseline and safe to go home with home PT. I spent 34 minutes coordinating this discharge on 02/22 Gen: awake, alert HEENT: normocephalic, atraumatic, good hearing acuity, moist mucous membranes Resp: good air exchange, breathing comfortably with no accessory muscle use CVS: good distal perfusion x 4, GI: soft, NTTP, ND : no SPT, no CVAT, roy catheter not present MSK: no pitting edema, no clubbing Objective - Vital Signs Vital signs: Vital Signs Temp 97.8 F 02/22/23 08:00 Pulse 99 02/22/23 08:00 Resp 18 02/22/23 08:00 BP 119/83 02/22/23 08:00 Pulse Ox 96 02/22/23 08:00 FiO2 Intake & Output 02/21/23 02/22/23 02/22/23 18:59 06:59 18:59 Intake Total 300 50 476 Output Total 850 2550 Balance 300 800 -0645 Intake: Oral 300 50 476 Output: Urine 850 2550 Straight 850 2550 Other: Voiding Method External Catheter # Voids 1 - Labs CBC & Chem 7: 02/22/23 08:22 02/22/23 11:07 Labs: Abnormal Lab Results - Last 24 Hours (Table) 02/22/23 02/22/23 Range/Units 08:22 11:07 MCV 104.5 H (80.0-100.0) fL MCH 35.5 H (25.0-35.0) pg Potassium 3.4 L (3.5-5.1) mmol/L Chloride 109 H (98-107) mmol/L Glucose 106 H (74-99) mg/dL
== END 2023-02-22 14:14 | disposition home health service (06) | DRG 72 ==
LOC: EC 00:07 → 3SCARD 02:40 → OBSVTOIN 02-21 16:58
PROVIDERS: ADMIT Internal Medicine; ATTEND Internal Medicine
DX: G93.40 Encephalopathy, unspecified (principal); I70.0 Atherosclerosis of aorta; R47.81 Slurred speech; I95.9 Hypotension, unspecified; R29.810 Facial weakness; Z79.890 Hormone replacement therapy
CPT/HCPCS: 36415; 70450; 70496; 70498; 70553; 71045; 80048; 80053; 80320; 81001; 82140; 82550; 82607; 82746; 83690; 83735; 84100; 84443; 84484; 85025; 85610; 85730; 93005; 93306; 94760; 95816; 96361; 96372; 96374; 96375; 99291